=== PATIENT | male | born 1990 | race African-American/Black ===

== ENCOUNTER 2019-03-22 23:31 | Emergency (ER) | payer MEDICAID ==
[~2019-03-22] VITALS: Ht 167.6 cm; Wt 66.0 kg
[2019-03-23] MEDS ORDERED: LIDOCAINE 1%/EPI 1:100,000 10 ML VIAL IJ ONE (01:00)
[2019-03-23] MEDS ORDERED: BACITRACIN ZINC OINT UDPKT TOP ONE (01:00)
[2019-03-23] MEDS ORDERED: IBUPROFEN 600MG TABLET PO ONE (01:00)
[2019-03-23] MEDS ORDERED: LIDOCAINE HCL/EPINEPHRINE 1%-EPI 1:100,000 20 ML VIAL INFIL ONE (01:15)
[2019-03-23 02:18] VITALS: BP 110/45
== END 2019-03-23 02:20 | disposition home or self-care (01) ==
LOC: ER 23:31
DX: S61.411A Laceration without foreign body of right hand, initial encounter (principal); F12.10 Cannabis abuse, uncomplicated; F17.210 Nicotine dependence, cigarettes, uncomplicated; Z71.6 Tobacco abuse counseling; W25.XXXA Contact with sharp glass, initial encounter; Y93.89 Activity, other specified; Y92.018 Other place in single-family (private) house as the place of occurrence of the external cause
CPT/HCPCS: 12001; 99283; 99406; J3490; Z7610